=== PATIENT | male | born 1975 | race African-American/Black ===

== ENCOUNTER 2017-07-04 10:31 | Emergency (ER) | payer MEDICARE | END 2017-07-04 11:59 | disposition home or self-care (01) | LOC: D.ER 10:31 | DX: M79.605 Pain in left leg (principal); M79.604 Pain in right leg; M62.838 Other muscle spasm; F17.200 Nicotine dependence, unspecified, uncomplicated ==

== ENCOUNTER 2017-07-26 01:46 | Emergency (ER) | payer MEDICARE | END 2017-07-26 02:17 | disposition home or self-care (01) | LOC: D.ER 01:46 | DX: G89.29 Other chronic pain (principal); F17.200 Nicotine dependence, unspecified, uncomplicated ==

== ENCOUNTER 2017-07-28 21:05 | Emergency (ER) | payer MEDICARE | END 2017-07-28 21:58 | disposition home or self-care (01) | LOC: D.ER 21:05 | DX: G89.4 Chronic pain syndrome (principal); Z76.0 Encounter for issue of repeat prescription; M79.605 Pain in left leg; M79.604 Pain in right leg ==

== ENCOUNTER 2017-07-31 09:56 | Emergency (ER) | payer MEDICARE | END 2017-07-31 14:43 | disposition short-term general hospital (02) | LOC: D.ER 09:56 | DX: F33.9 Major depressive disorder, recurrent, unspecified (principal); F14.10 Cocaine abuse, uncomplicated; R45.851 Suicidal ideations; G89.4 Chronic pain syndrome; F17.200 Nicotine dependence, unspecified, uncomplicated ==